=== PATIENT | male | born 1980 | race African-American/Black ===

== ENCOUNTER 2018-02-02 11:37 | Emergency (ER) | payer SELFPAY ==
[~2018-02-02] VITALS: Ht 193 cm; Wt 86.0 kg
[2018-02-02] MEDS ORDERED: ACETAMINOPHEN 500MG TABLET PO ONE (16:30)
[2018-02-02 16:35] VITALS: BP 118/77
== END 2018-02-02 16:38 | disposition home or self-care (01) ==
LOC: ER 12:29
DX: K02.9 Dental caries, unspecified (principal); F12.10 Cannabis abuse, uncomplicated; F17.200 Nicotine dependence, unspecified, uncomplicated
CPT/HCPCS: 99283